=== PATIENT | female | born 1975 | race Caucasian/White ===

== ENCOUNTER 2016-11-15 18:14 | Emergency (ER) | payer OTHER ==
[2016-02-06 13:28] VITALS: BMI 32.2
[~2016-11-15 18:14] MED LIST: CATAPRES0.2 MG PO; HYDROCODONE-APA1 TAB PO; KLONOPIN1 MG PO; LEVAQUIN500 MG PO; SEROQUEL100 MG PO; SOMA350 MG PO; STERAPRED 5MG 125 MG PO; ZESTRIL40 MG PO
== END 2016-11-15 20:14 | disposition home or self-care (01) ==
LOC: D.ER 18:14
DX: K59.00 Constipation, unspecified (principal); I10 Essential (primary) hypertension; F41.0 Panic disorder [episodic paroxysmal anxiety]

== ENCOUNTER 2017-09-20 14:06 | Emergency (ER) | payer OTHER ==
[2016-02-06 13:28] VITALS: BMI 32.2
[2017-09-20 14:58] LABS: BASOPHILS 0.3 % (0-2); EOSINOPHILS 2.9 % (0-7); HEMATOCRIT 37.1 % (36.0-48.0); HEMOGLOBIN 12.6 g/dL (12-16); IMMATURE GRANULOCYTES 0.2 % (0-5); LYMPHOCYTES 34.2 % (15-50); MCH 31.5 pg (26.0-34.0); MCV 92.8 fL (80.0-100.0); MEAN PLATELET VOLUME 10.8 fL (7.4-10.4); MONOCYTES 6.7 % (2-11); NEUTROPHILS 55.7 % (40-80); PLATELET COUNT 220 10x3/uL (130-400); RDW 12.8 % (11.5-14.5); WBC 6.3 10x3/uL (4.8-10.8)
[2017-09-20 15:05] LABS: APPEARANCE CLEAR (CLEAR); BILIRUBIN NEGATIVE (NEGATIVE); COLOR YELLOW (YELLOW); GLUCOSE NEGATIVE (NEGATIVE); KETONE NEGATIVE (NEGATIVE); NITRITE NEGATIVE (NEGATIVE); PROTEIN NEGATIVE (NEGATIVE); SPECIFIC GRAVITY 1.015 (1.005-1.020); UROBILINOGEN NORMAL (NORMAL)
[2017-09-20 15:23] LABS: UDS - AMPHET NEGATIVE QUAL (NEGATIVE); UDS - BARB NEGATIVE QUAL (NEGATIVE); UDS - BENZO POSITIVE QUAL (NEGATIVE); UDS - COCAINE NEGATIVE QUAL (NEGATIVE); UDS - OPIATE NEGATIVE QUAL (NEGATIVE); UDS - PCP NEGATIVE QUAL (NEGATIVE); UDS - THC NEGATIVE QUAL (NEGATIVE)
[2017-09-20 15:58] LABS: ALBUMIN 3.7 g/dL (3.4-5.0); ALKALINE PHOSPHATASE 75 U/L (46-116); ALT (SGPT) 31 U/L (10-68); BILIRUBIN - TOTAL 0.25 mg/dL (0.2-1.3); CALC OSMOLALITY 272 mosm/kg (275-300); CALCIUM 9.3 mg/dL (8.5-10.1); CARBON DIOXIDE 31.4 mmol/L (21.0-32.0); CHLORIDE - SERUM 103 mmol/L (98-107); CREATININE - SERUM 0.7 mg/dL (0.6-1.3); GLUCOSE 85 mg/dL (74-106); PROTEIN - SERUM 7.5 g/dL (6.4-8.2); SODIUM 138 mmol/L (136-145); UREA NITROGEN 7 mg/dL (7-18); eGFR NON AFRICAN AMERICAN > 90 mL/min (90-120)
[2017-09-20 16:08] LABS: CHOL - HDL RATIO 4.7 ratio (2.3-4.1); CHOLESTEROL, TOTAL 232 mg/dL (0-200); CKMB 1.3 U/L (0.0-3.6); CREATINE KINASE 78 UL (21-215); HDL CHOLESTEROL 49 mg/dL (32-96); LDL CHOLESTEROL 155 mg/dL (0-100); LDL-HDL RATIO 3.2 ratio (1.5-3.5); PRO BNP 515 pg/mL (0-125); TRIGLYCERIDE 141 mg/dL (30-200)
[2017-09-20 16:11] LABS: TROPONIN-I < 0.017 ng/mL (0.000-0.060)
== END 2017-09-20 17:38 | disposition home or self-care (01) ==
LOC: D.ER 14:06
PROVIDERS: Emergency Medicine; Nurse Practitioner Family
DX: F41.9 Anxiety disorder, unspecified (principal); M25.571 Pain in right ankle and joints of right foot; R60.0 Localized edema; Z86.79 Personal history of other diseases of the circulatory system

== ENCOUNTER 2018-05-30 17:39 | Emergency (ER) | payer OTHER ==
[~2018-05-30] VITALS: Ht 167.6 cm; Wt 72.7 kg
[2018-05-30 17:41] VITALS: Ht 167.6 cm; Wt 72.7 kg
[2018-05-30 18:28] LABS: BASOPHILS 0.1 % (0-2); EOSINOPHILS 0.2 % (0-7); HEMATOCRIT 30.7 % (36.0-48.0); LYMPHOCYTES 4.2 % (15-50); MCH 31.9 pg (26.0-34.0); MCHC 35.8 g/dL (31.0-37.0); MEAN PLATELET VOLUME 11.8 fL (7.4-10.4); MONOCYTES 10.5 % (2-11); RBC 3.45 10x6/uL (4.00-5.40); RDW 12.8 % (11.5-14.5); WBC 15.3 10x3/uL (4.8-10.8)
[2018-05-30 18:30] LABS: PLATELET COUNT 165 10x3/uL (130-400)
[2018-05-30 18:52] LABS: ALBUMIN 2.8 g/dL (3.4-5.0); ANION GAP 11.5 mmol/L (8-16); BILIRUBIN - TOTAL 0.71 mg/dL (0.2-1.3); CALCIUM 8.9 mg/dL (8.5-10.1); CREATININE - SERUM 4.7 mg/dL (0.6-1.3); POTASSIUM - SERUM 3.5 mmol/L (3.5-5.1); PROTEIN - SERUM 7.7 g/dL (6.4-8.2)
[2018-05-30 22:01] LABS: APPEARANCE HAZY (CLEAR); BILIRUBIN NEGATIVE (NEGATIVE); COLOR YELLOW (YELLOW); GLUCOSE NEGATIVE (NEGATIVE); KETONE NEGATIVE (NEGATIVE); NITRITE NEGATIVE (NEGATIVE); PROTEIN 1+ mg/dL (NEGATIVE); SPECIFIC GRAVITY 1.005 (1.005-1.020); UROBILINOGEN NORMAL (NORMAL)
[2018-05-30 22:06] LABS: UDS - AMPHET NEGATIVE QUAL (NEGATIVE); UDS - BARB NEGATIVE QUAL (NEGATIVE); UDS - BENZO NEGATIVE QUAL (NEGATIVE); UDS - OPIATE NEGATIVE QUAL (NEGATIVE)
[2018-05-30 22:09] LABS: UDS - COCAINE NEGATIVE QUAL (NEGATIVE); UDS - PCP NEGATIVE QUAL (NEGATIVE); UDS - THC NEGATIVE QUAL (NEGATIVE)
[2018-05-30 22:15] LABS: BACTERIA MANY /hpf (NONE SEEN); EPITHELIAL CELLS 0-5 /hpf (0-5); RED CELLS - URINE 0-5 /hpf (0-5)
[2018-05-30] MEDS ORDERED: MACROBID100 MG PO (23:45)
[2018-05-31 01:23] VITALS: BP 89/52
== END 2018-05-31 01:25 | disposition other institution (70) ==
LOC: D.ER 17:39
PROVIDERS: Emergency Medicine
DX: F23 Brief psychotic disorder (principal); N39.0 Urinary tract infection, site not specified; I10 Essential (primary) hypertension; F17.200 Nicotine dependence, unspecified, uncomplicated

== ENCOUNTER 2018-08-21 20:10 | Emergency (ER) | payer SELFPAY ==
[~2018-08-21] VITALS: Ht 167.6 cm; Wt 72.7 kg
[~2018-08-21 20:10] MED LIST changes: +MACROBID100 MG PO
[2018-08-21 20:17] VITALS: Ht 167.6 cm; Wt 72.7 kg
[2018-08-21 20:26] LABS: APPEARANCE CLEAR (CLEAR); BILIRUBIN NEGATIVE (NEGATIVE); COLOR YELLOW (YELLOW); GLUCOSE NEGATIVE (NEGATIVE); KETONE NEGATIVE (NEGATIVE); NITRITE POSITIVE (NEGATIVE); PROTEIN 1+ mg/dL (NEGATIVE); SPECIFIC GRAVITY 1.015 (1.005-1.020); UROBILINOGEN NORMAL (NORMAL)
[2018-08-21 20:27] LABS: RED CELLS - URINE 0-5 /hpf (0-5); UDS - AMPHET POSITIVE QUAL (NEGATIVE); UDS - BARB NEGATIVE QUAL (NEGATIVE); UDS - BENZO NEGATIVE QUAL (NEGATIVE); UDS - COCAINE NEGATIVE QUAL (NEGATIVE); UDS - OPIATE NEGATIVE QUAL (NEGATIVE); UDS - PCP NEGATIVE QUAL (NEGATIVE); UDS - THC NEGATIVE QUAL (NEGATIVE)
[2018-08-21 20:28] LABS: BACTERIA MODERATE /hpf (NONE SEEN); EPITHELIAL CELLS 0-5 /hpf (0-5)
[2018-08-21] MEDS ORDERED: MACROBID100 MG PO (20:48)
[2018-08-21 20:59] VITALS: BP 129/87
== END 2018-08-21 21:01 | disposition home or self-care (01) ==
LOC: D.ER 20:10
PROVIDERS: Family Medicine
DX: F41.9 Anxiety disorder, unspecified (principal); F19.10 Other psychoactive substance abuse, uncomplicated; I10 Essential (primary) hypertension; F17.200 Nicotine dependence, unspecified, uncomplicated

== ENCOUNTER 2018-10-21 05:36 | Emergency (ER) | payer SELFPAY ==
[~2018-10-21] VITALS: Ht 167.6 cm; Wt 63.6 kg
[2018-10-21 05:44] VITALS: Ht 167.6 cm; Wt 63.6 kg
[2018-10-21] MEDS ORDERED: CLEOCIN HCL300 MG PO (06:12)
[2018-10-21] MEDS ORDERED: NORCO 7.5/325 T1 TA1 PO (06:12)
[2018-10-21 06:23] VITALS: BP 133/77
== END 2018-10-21 06:23 | disposition home or self-care (01) ==
LOC: D.ER 05:36
DX: S02.5XXA Fracture of tooth (traumatic), initial encounter for closed fracture (principal); X58.XXXA Exposure to other specified factors, initial encounter; Y93.89 Activity, other specified; Y92.89 Other specified places as the place of occurrence of the external cause; I10 Essential (primary) hypertension; F17.200 Nicotine dependence, unspecified, uncomplicated

== ENCOUNTER 2019-03-22 02:24 | Inpatient (IN) | payer SELFPAY ==
[~2019-03-22] VITALS: Ht 167.6 cm; Wt 59.0 kg
[2019-03-22] VITALS (19 sets, daily range): BP systolic 110–164; BP diastolic 53–111; Ht 167.6 cm; Wt 59.0 kg
[~2019-03-22 02:24] MED LIST changes: +CLEOCIN HCL300 MG PO; +NORCO 7.5/325 T1 TA1 PO
[2019-03-22 03:25] LABS: BASOPHILS 0.2 % (0-2); EOSINOPHILS 0.7 % (0-7); IMMATURE GRANULOCYTES 0.2 % (0-5); LYMPHOCYTES 15.7 % (15-50); MCH 31.1 pg (26.0-34.0); MCHC 34.3 g/dL (31.0-37.0); MCV 90.7 fL (80.0-100.0); MEAN PLATELET VOLUME 9.9 fL (7.4-10.4); MONOCYTES 8.8 % (2-11); NEUTROPHILS 74.4 % (40-80); PLATELET COUNT 237 10x3/uL (130-400); RBC 3.86 10x6/uL (4.00-5.40); RDW 15.1 % (11.5-14.5); WBC 11.5 10x3/uL (4.8-10.8)
[2019-03-22 03:39] LABS: ALBUMIN 3.5 g/dL (3.4-5.0); ANION GAP 12.4 mmol/L (8-16); BILIRUBIN - TOTAL 0.49 mg/dL (0.2-1.3); CALCIUM 8.7 mg/dL (8.5-10.1); CARBON DIOXIDE 27.2 mmol/L (21.0-32.0); CREATININE - SERUM 1.1 mg/dL (0.6-1.3); POTASSIUM - SERUM 3.6 mmol/L (3.5-5.1); PROTEIN - SERUM 7.1 g/dL (6.4-8.2)
[2019-03-22 05:32] LABS: APPEARANCE CLEAR (CLEAR); BILIRUBIN NEGATIVE (NEGATIVE); COLOR STRAW (YELLOW); GLUCOSE NEGATIVE (NEGATIVE); KETONE NEGATIVE (NEGATIVE); NITRITE NEGATIVE (NEGATIVE); PROTEIN NEGATIVE (NEGATIVE); SPECIFIC GRAVITY 1.005 (1.005-1.020); UROBILINOGEN NORMAL (NORMAL)
[2019-03-22 05:35] LABS: UDS - AMPHET POSITIVE QUAL (NEGATIVE); UDS - BARB NEGATIVE QUAL (NEGATIVE); UDS - BENZO NEGATIVE QUAL (NEGATIVE); UDS - COCAINE POSITIVE QUAL (NEGATIVE); UDS - OPIATE NEGATIVE QUAL (NEGATIVE); UDS - PCP NEGATIVE QUAL (NEGATIVE); UDS - THC NEGATIVE QUAL (NEGATIVE)
--- NOTE | 2019-03-22 05:40 | NUR ---
PT ARRIVED TO UNIT VIA STRETCHER ACCOMPANIED BY ER STAFF. TRANSFERRED SELF FROM STRETCHER WITHOUT DIFFICULTY. PT BELONGINGS IN ROOM WITH PATIENT. PT LETHARGIC. AROUSES AND ANSWERS SOME QUESTIONS WITH THE HELP OF TACTILE STIMULATION. 98% ON RA. RT SCLERA BRIGHT RED. PERRLA. UPPER LIP BRUISED WITH ABRASIANS. MULTIPLE BRUISES T/O BODY. RT FA PIV SALINE LOCKED. HOB 30 DEGRESS PER MD ORDER. BED ALARM ON. ALL OTHER SAFETY MEASURES IN PLACE. CBIR. WILL CONTINUE TO CLOSELY MONITOR.
--- NOTE | 2019-03-22 07:00 | NUR ---
SHIFT ASSESSMENT COMPLETED. PT CARE ASSUMED, MONITORS ON AND WORKING, VITALS STABLE, CALL LIGHT WITHIN REACH, WILL CONTINUE TO OBSERVE. SEE FLOW SHEET FOR FURTHER DETIALS. WILL CONTINUE TO OBSERVE.
[2019-03-22 07:57] LABS: APTT 26.8 SECONDS (22.8-39.4); INR 1.01 (0.85-1.17); PROTIME 12.8 SECONDS (11.6-15.0)
--- NOTE | 2019-03-22 09:00 | NUR ---
PT LYING IN BED RESTING, PT UP TO BEDSIDE COMMODE AT L[place], MONITORS ON AND WORKING, VITALS STABLE, NO SIGNS/SYMPTOMS OF PAIN OR DISCOMFORT NOTED AT THIS TIME, WILL CONTINUE TO OBSERVE.
--- NOTE | 2019-03-22 09:30 | NUR ---
PT REC'ING ATIVAN, PT DROWSY, VERY CONFUSED WHEN AROUSED, UNABLE TO HOLD MEANINGFUL CONVERSATION, WILL DO SUICIDE RISK SCREENING WHEN PT IS MORE COHERENT.
--- NOTE | 2019-03-22 11:00 | NUR ---
DR KHAN AT BEDSIDE, NO CHANGES, MONITORS ON AND WORKING, VITALS STABLE, SEE FLOW SHEET FOR FURTHER DETIALS, WILL CONTINUE TO OBSERVE.
--- NOTE | 2019-03-22 13:00 | NUR ---
PT RESTING CALMLY, NO CHANGES MONITORS ON AND WORKING. VITALS STABLE, WILL CONTINUE TO OBSERVE.
--- NOTE | 2019-03-22 15:00 | NUR ---
PT UP AD LENO. VITALS STABLE, SEE FLOW SHEET FOR FURTHER DETAILS. WILL CONTINUE TO OBSERVE.
--- NOTE | 2019-03-22 16:02 | MORECARE ---
CASE MANAGEMENT DISCHARGE SUMMARY PATIENT: RADHA MONROY UNIT: [id number] ADM DATE: 03/22/19 AGE: 44 : 71 SEX: F ROOM/BED: D.2301 AUTHOR: MARIJA GEORGES PHYSICIAN: REFERRING PHYSICIAN: LUCRECIA DOVE MD DATE OF SERVICE: 03/22/19 Discharge Plan Patient Name: RADHA MONROY Facility: [facility]:[place] : 1975 Planned Disposition: Anticipated Discharge Date: Discharge Date: Expected LOS: Initial Reviewer: [email or web address] Initial Review Date: 03/22/2019 Generated: 03/22/19 5:02 pm Patient Name: RADHA MONROY Page [id number] at 1602 All edits/amendments must be made on the electronic document DICTATION DATE: 03/22/19 160 CENTRIFUGE OPERATOR: JULIETTE 03/22/19 160 RPT#: [id number] PA DATE: STATUS: ADM IN [facility] [address] [place] [address] END OF REPORT
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
--- NOTE | 2019-03-22 17:00 | NUR ---
PT RESTING, NO SIGNS/SYMPTOMS OF PAIN OR DISCOMFORT NOTED. WILL CONTINUE TO OBSERVE.
--- NOTE | 2019-03-22 19:00 | NUR ---
SHIFT ASSESSMENT COMPLETE. VS STABLE. NO DISTRESS WILL CONTINUE TO MONITOR.
--- NOTE | 2019-03-22 21:00 | NUR ---
VS STABLE. NO VISUAL CUES OF DISTRESS NOTED. WILL MONITOR.
--- NOTE | 2019-03-22 23:00 | NUR ---
VS STABLE. NO VISUAL CUES OF DISTRESS NOTED. WILL MONITOR.
[2019-03-23] VITALS (13 sets, daily range): BP systolic 106–148; BP diastolic 67–93
--- NOTE | 2019-03-23 01:00 | NUR ---
VS STABLE. NO VISUAL CUES OF DISTRESS NOTED. WILL MONITOR.
--- NOTE | 2019-03-23 03:00 | NUR ---
VS STABLE. NO VISUAL CUES OF DISTRESS NOTED. WILL MONITOR.
[2019-03-23 04:31] LABS: BASOPHILS 0 % (0-2); EOSINOPHILS 0 % (0-7); HEMATOCRIT 39.8 % (36.0-48.0); HEMOGLOBIN 13.8 g/dL (12-16); IMMATURE GRANULOCYTES 0.2 % (0-5); LYMPHOCYTES 6.1 % (15-50); MCH 31.6 pg (26.0-34.0); MCHC 34.7 g/dL (31.0-37.0); MCV 91.1 fL (80.0-100.0); MEAN PLATELET VOLUME 10.6 fL (7.4-10.4); MONOCYTES 4.7 % (2-11); PLATELET COUNT 278 10x3/uL (130-400); RBC 4.37 10x6/uL (4.00-5.40); RDW 14.9 % (11.5-14.5)
[2019-03-23 04:49] LABS: ANION GAP 13.1 mmol/L (8-16); CARBON DIOXIDE 27.8 mmol/L (21.0-32.0); POTASSIUM - SERUM 3.9 mmol/L (3.5-5.1)
[2019-03-23 04:54] LABS: WBC 15.1 10x3/uL (4.8-10.8)
--- NOTE | 2019-03-23 05:00 | NUR ---
VS STABLE. NO VISUAL CUES OF DISTRESS NOTED. WILL MONITOR.
--- NOTE | 2019-03-23 07:21 | NUR ---
PT IS RESTING IN BED WITH EYES CLOSED. RESPIRATIONS ARE EVEN AND UNLABORED. PT IS EASILY AROUSED WITH VERBAL STIMULATION. VSS. SEE FLOWSHEET. PT REQUESTS TO BE REMOVED FROM CONFIDENTIAL STATUS. PT EDUCATED ON CONFIDENTIAL STATUS AND PT VERBALIZES UNDERSTANDING. PT REPORTS ANXIETY AT THIS TIME AND REQUESTS A SPRITE TO DRINK. WILL ADDRESS. BED IS IN THE LOWEST POSITION. CALL LIGHT AND BEDSIDE TABLE ARE WITHIN REACH. SIDE RAILS X 0 AT PT REQUEST. WILL CONT TO MONITOR.
--- NOTE | 2019-03-23 09:50 | NUR ---
PT IS AAO X 4. PT REPORTS AGGITATION IN REGARDS TO PAIN MEDICATION, NPO STATUS, AND CONFIDENTIALITY STATUS. OFFICER AT BEDSIDE TO TAKE PT STATEMENT. PT AGREES TO COMMUNICATE WITH OFFICER. MORNING MEDS COMPLETED. PT EDUCATED ON IMPORTANCE OF NPO STATUS. DR SHIRLEY AT BEDSIDE, WILL CHANGE ACETAMINOPHEN ROUTE TO PO FOR ANALGESIA. PT DENIES FURTHER NEEDS AT THIS TIME. WILL CONT TO MONITOR
--- NOTE | 2019-03-23 12:00 | NUR ---
PT REQUESTS TO LEAVE AMA. PT EDUCATED ON AMA AND IMPORTANCE OF APPROPRIATE MEDICAL CARE, PT STATES "I DON'T CARE. I WANT TO LEAVE." AMA PAPERS SIGNED BY PATIENT. DR DOVE NOTIFIED OF PT REQUEST TO LEAVE AMA. SIGNED AMA PAPERS PLACED IN PT CHART. PT REFUSING ANY FURTHER MEDICAL ATTENTION. PT STATES THAT SHE WILL GET DRESSED AND WILL HAVE SOMEONE COME AND PICK HER UP. WILL CONT TO ASSIST PATIENT UNTIL ABLE TO LEAVE UNIT.
--- NOTE | 2019-03-23 12:40 | NUR ---
PT EXITED ROOM AMBULATORY TO LEAVE AMA. PT WITH PERSONAL BELONGINGS IN HAND. PT DENIES/REFUSES FURTHER NEEDS/TREATMENT. PT ASSISTED OFF UNIT.
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
== END 2019-03-23 12:41 | disposition home or self-care (01) | DRG 86 ==
LOC: D.ER 02:24 → D.ICU 03:42
PROVIDERS: Family Medicine; ADMIT Internal Medicine Nephrology; ATTEND Internal Medicine Nephrology
DX: S06.5X0A Traumatic subdural hemorrhage without loss of consciousness, initial encounter (principal); N17.9 Acute kidney failure, unspecified; I50.32 Chronic diastolic (congestive) heart failure; F17.203 Nicotine dependence unspecified, with withdrawal; Y09 Assault by unspecified means; I11.0 Hypertensive heart disease with heart failure; F31.9 Bipolar disorder, unspecified; F15.10 Other stimulant abuse, uncomplicated; F14.10 Cocaine abuse, uncomplicated; F20.9 Schizophrenia, unspecified

== ENCOUNTER 2019-04-02 17:05 | Inpatient (IN) | payer MEDICAID ==
[~2019-04-02] VITALS: Ht 170.2 cm; Wt 65.6 kg
[2019-04-02] VITALS (8 sets, daily range): BP systolic 139–159; BP diastolic 63–98; BMI 20.4
[2019-04-02 17:43] LABS: BASOPHILS 0.3 % (0-2); EOSINOPHILS 0.7 % (0-7); HEMATOCRIT 34.6 % (36.0-48.0); HEMOGLOBIN 11.7 g/dL (12-16); IMMATURE GRANULOCYTES 0.3 % (0-5); LYMPHOCYTES 14.2 % (15-50); MCH 30.8 pg (26.0-34.0); MCHC 33.8 g/dL (31.0-37.0); MCV 91.1 fL (80.0-100.0); MONOCYTES 5.8 % (2-11); NEUTROPHILS 78.7 % (40-80); PLATELET COUNT 280 10x3/uL (130-400); RDW 14.1 % (11.5-14.5); WBC 10.6 10x3/uL (4.8-10.8)
[2019-04-02 17:56] LABS: APTT 25.5 SECONDS (22.8-39.4); INR 0.93 (0.85-1.17)
[2019-04-02 18:17] LABS: ALBUMIN 3.7 g/dL (3.4-5.0); ALKALINE PHOSPHATASE 69 U/L (46-116); ALT (SGPT) 39 U/L (10-68); BILIRUBIN - TOTAL 0.36 mg/dL (0.2-1.3); CALC OSMOLALITY 284 mosm/kg (275-300); CALCIUM 8.9 mg/dL (8.5-10.1); CARBON DIOXIDE 24.8 mmol/L (21.0-32.0); CHLORIDE - SERUM 103 mmol/L (98-107); GLUCOSE 77 mg/dL (74-106); POTASSIUM - SERUM 3.2 mmol/L (3.5-5.1); PROTEIN - SERUM 7.7 g/dL (6.4-8.2); SODIUM 139 mmol/L (136-145); UREA NITROGEN 36 mg/dL (7-18); eGFR NON AFRICAN AMERICAN 63 mL/min (90-120)
[2019-04-02 18:30] LABS: CKMB 4.8 U/L (0.0-3.6); CREATINE KINASE 205 UL (21-215); MAGNESIUM - SERUM 2.5 mg/dL (1.8-2.4); THYROID STIMULATING HORMONE 1.14 uIU/mL (0.36-3.74)
[2019-04-02 18:32] LABS: TROPONIN-I < 0.017 ng/mL (0.000-0.060)
[2019-04-02 19:19] LABS: % SATURATION 15 % (15-55); IRON 51 ug/dl (35-150); TOTAL IRON BIND CAPACITY 336 ug/dl (260-445); UNSAT IRON BIND CAPACITY 285 ug/dl (150-375)
--- NOTE | 2019-04-02 19:35 | NUR ---
PT PLACED IN GOWN. PT UPDATED ON PLAN OF CARE AND NPO STATUS. PT REFUSING BLOOD CULTURE LAB DRAW AT THIS TIME.
--- NOTE | 2019-04-02 19:44 | NUR ---
DR CRUZ AT PT BEDSIDE.
--- NOTE | 2019-04-02 20:30 | NUR ---
PT SLEEPING ON BED, NO S/S OF ACUTE DISTRESS NOTED.
--- NOTE | 2019-04-02 21:16 | NUR ---
PT AMBULATED TO RESTROOM WITH A STEADY GAIT. URINE SPECIMEN GIVEN TO LAB.
[2019-04-02 21:21] LABS: APPEARANCE CLEAR (CLEAR); BILIRUBIN NEGATIVE (NEGATIVE); COLOR STRAW (YELLOW); GLUCOSE NEGATIVE (NEGATIVE); KETONE MODERATE mg/dL (NEGATIVE); NITRITE NEGATIVE (NEGATIVE); PROTEIN NEGATIVE (NEGATIVE); SPECIFIC GRAVITY 1.015 (1.005-1.020); UROBILINOGEN NORMAL (NORMAL)
[2019-04-02 21:24] LABS: BACTERIA FEW /hpf (NONE SEEN); EPITHELIAL CELLS 0-5 /hpf (0-5); RED CELLS - URINE 0-5 /hpf (0-5); WHITE CELLS - URINE OCC /hpf (0-5)
[2019-04-02 21:40] LABS: UDS - AMPHET NEGATIVE QUAL (NEGATIVE); UDS - BARB NEGATIVE QUAL (NEGATIVE); UDS - BENZO NEGATIVE QUAL (NEGATIVE); UDS - COCAINE NEGATIVE QUAL (NEGATIVE); UDS - OPIATE POSITIVE QUAL (NEGATIVE); UDS - PCP NEGATIVE QUAL (NEGATIVE); UDS - THC NEGATIVE QUAL (NEGATIVE)
--- NOTE | 2019-04-02 22:00 | NUR ---
RECEIVED PT FROM ER TO ROOM 2301. PT MOVED SELF OVER TO ICU BED AND WAS ATTACHED TO MONITORS. ALL MONITORS ARE WORKING AT THIS TIME. ADMISSION ASSESSMENT COMPLETED, SEE FLOWSHEET FOR DETIALS. PT DENIES NEEDS AT THIS TIME. NO SIGNS OF ACUTE DISTRESS. WILL CONTINUE TO MONITOR.
--- NOTE | 2019-04-02 23:00 | NUR ---
PT IS RESTING QUIETLY IN BED AT THIS TIME. NO SIGNS OF ACUTE DISTRESS. NO NEEDS VOICED. WILL CONTINUE TO MONITOR.
[2019-04-03] VITALS (21 sets, daily range): BP systolic 96–152; BP diastolic 66–97; Ht 170.2 cm; Wt 65.6 kg
--- NOTE | 2019-04-03 01:00 | NUR ---
PT IS RESTING IN BED WITH EYES CLOSED AT THIS TIME. NO NEEDS VOICED. NO SIGNS OF ACUTE DISTRESS. WILL CONTINUE TO MONITOR.
--- NOTE | 2019-04-03 03:00 | NUR ---
REASSESSMENT COMPLETED, SEE FLOWSHEET FOR DETAILS. PT IS LAYING IN BED WITH EYES CLOSED. NO NEEDS VOICED AT THIS TIME. NO SIGNS OF ACUTE DISTRESS. WILL CONTINUE TO MONITOR.
[2019-04-03 03:47] LABS: BASOPHILS 0 % (0-2); EOSINOPHILS 0 % (0-7); HEMATOCRIT 32.9 % (36.0-48.0); HEMOGLOBIN 11.2 g/dL (12-16); IMMATURE GRANULOCYTES 0.2 % (0-5); LYMPHOCYTES 5.8 % (15-50); MCH 31.1 pg (26.0-34.0); MCV 91.4 fL (80.0-100.0); MEAN PLATELET VOLUME 10.4 fL (7.4-10.4); MONOCYTES 0.2 % (2-11); NEUTROPHILS 93.8 % (40-80); PLATELET COUNT 288 10x3/uL (130-400); WBC 9.3 10x3/uL (4.8-10.8)
[2019-04-03 04:07] LABS: ALBUMIN 3.1 g/dL (3.4-5.0); ANION GAP 12.9 mmol/L (8-16); BILIRUBIN - TOTAL 0.5 mg/dL (0.2-1.3); CALCIUM 8.7 mg/dL (8.5-10.1); CREATININE - SERUM 0.9 mg/dL (0.6-1.3); MAGNESIUM - SERUM 2.3 mg/dL (1.8-2.4); PROTEIN - SERUM 6.8 g/dL (6.4-8.2)
[2019-04-03 04:29] LABS: POTASSIUM - SERUM 3.9 mmol/L (3.5-5.1)
--- NOTE | 2019-04-03 05:00 | NUR ---
PT IS RESTING IN BED WITH EYES CLOSED. NO NEEDS VOICED. NO SIGNS OF ACUTE DISTRESS. WILL CONTINUE TO MONITOR.
--- NOTE | 2019-04-03 07:00 | NUR ---
SHIFT ASSESSMENT COMPLETED. PT CARE ASSUMED, MONITORS ON AND WORKING, VITALS STABLE, PT AWAKENS EASILY TO VOICE. CALL LIGHT WITHIN REACH, WILL CONTINUE TO OBSERVE.
--- NOTE | 2019-04-03 09:00 | NUR ---
PATIENT RESTING. FAMILY AT BEDSIDE. VSS. WILL CONTINUE TO MONITOR
--- NOTE | 2019-04-03 11:00 | NUR ---
PATIENT RESTING. AFEBRILE. ALERT AND ORIENTED. CALL LIGHT WITHIN REACH. VSS. WILL CONTINUE TO MONITOR
--- NOTE | 2019-04-03 13:00 | NUR ---
FAMILY AT BEDSIDE. CALL LIGHT WITHIN REACH. BED LOW AND LOCKED. PATIENT ALERT AND ORIENTED. NO CHAGNES NOTED
--- NOTE | 2019-04-03 15:00 | NUR ---
PATIENT RESTING. PATIENT COMPLAINING OF ANXIETY. GIVEN ATIVAN. WILL REASSES. REASSESMENT COMPLETED. WILL CONTINUE TO MONITOR
--- NOTE | 2019-04-03 17:00 | NUR ---
FAMILY AT BEDSIDE. PATIENT REPORTED HIP PAIN. DILUADED GIVEN. WILL REASSES. CALL LIGHT WITHIN REACH
--- NOTE | 2019-04-03 19:00 | NUR ---
REPORT RECEIVED, CARE ASSUMED. PT IS SITTING IN BED WITH EYES OPEN. PT'S IV IS OUT AT THIS TIME. WILL RESITE. INITIAL ASSESSMENT COMPLETED, SEE FLOWSHEET FOR DETAILS. NO NEEDS VOICED AT THIS TIME. NO SIGNS OF ACUTE DISTRESS. WILL CONTINUE TO MONITOR.
--- NOTE | 2019-04-03 21:00 | NUR ---
PT IS SITTING UP IN BED WITH EYES OPEN AT THIS TIME. IV RESITED TO RIGHT FOREARM. PT REQUESTED PRN PAIN AND ANXIETY MEDICATIONS, MEDS GIVEN, SEE EMAR FOR DETAILS. NO FURTHER NEEDS VOICED AT THIS TIME. NO SIGNS OF ACUTE DISTRESS. WILL CONTINUE TO MONITOR.
--- NOTE | 2019-04-03 23:00 | NUR ---
REASSESSMENT COMPLETED, SEE FLOWSHEET FOR DETAILS. PT IS IN BED WITH EYES CLOSED AT THIS TIME. NO NEEDS VOICED. NO SIGNS OF ACUTE DISTRESS. WILL CONTINUE TO MONITOR.
[2019-04-04] VITALS (19 sets, daily range): BP systolic 113–149; BP diastolic 51–95
--- NOTE | 2019-04-04 01:00 | NUR ---
PT IS RESTING IN BED WITH EYES CLOSED AT THIS TIMENO NEEDS VOICED. NO SIGNS OF ACUTE DISTRESS. WILL CONTINUE TO MONITOR.
--- NOTE | 2019-04-04 03:00 | NUR ---
REASSESSMENT COMPLETED, SEE FLOWSHEET FOR DETAILS. PT IS RESTING IN BED WITH EYES CLOSED. NO NEEDS VOICED AT THIS TIME. NO SIGNS OF ACUTE DISTRESS. WILL CONTINUE TO MONITOR.
[2019-04-04 04:52] LABS: ALBUMIN 2.8 g/dL (3.4-5.0); ANION GAP 9.8 mmol/L (8-16); CALCIUM 8.4 mg/dL (8.5-10.1); CREATININE - SERUM 1.1 mg/dL (0.6-1.3); MAGNESIUM - SERUM 2.1 mg/dL (1.8-2.4); POTASSIUM - SERUM 3.8 mmol/L (3.5-5.1); PROTEIN - SERUM 5.7 g/dL (6.4-8.2)
[2019-04-04 04:54] LABS: BILIRUBIN - TOTAL 0.1 mg/dL (0.2-1.3)
--- NOTE | 2019-04-04 05:00 | NUR ---
PT IS RESTING IN BED WITH EYES CLOSED AT THIS TIME. NO NEEDS VOICED. NO SIGNS OF ACUTE DISTRESS. WILL CONTINUE TO MONITOR.
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
--- NOTE | 2019-04-04 07:10 | NUR ---
RECIEVED REPORT FROM KULDEEP. PATIENT STATED FIANCE WILL BE BACK TO VISIT TODAY. VSS. WILL CONTINUE TO MONITOR. CALL LIGHT WITHIN REACH. BED LOW AND LOCKED. ASSESMENT COMPLETED
[2019-04-04 07:46] LABS: HEMATOCRIT 25.8 % (36.0-48.0); HEMOGLOBIN 8.7 g/dL (12-16); MCH 30.3 pg (26.0-34.0); MCHC 33.7 g/dL (31.0-37.0); MCV 89.9 fL (80.0-100.0); MEAN PLATELET VOLUME 10.5 fL (7.4-10.4); PLATELET COUNT 269 10x3/uL (130-400); RBC 2.87 10x6/uL (4.00-5.40); RDW 14.6 % (11.5-14.5)
--- NOTE | 2019-04-04 08:32 | NUR ---
GLASS REMOVED FROM ROOM. PATIENT IS CALM AND COOPERATIVE AT THIS TIME. PATIENT REQUESTS TO BE AWAKE WHEN PAIN MEDICATION BE ADMINISTERED. TWO RN'S WILL BE IN THE ROOM WHEN NARCOTICS ARE ADMINISTERED.
[2019-04-04 09:27] LABS: IMMATURE GRANULOCYTES 0.3 % (0-5)
[2019-04-04 09:40] LABS: HYPOCHROMASIA OCC; LYMPHOCYTES 7 % (15-50); MONOCYTES 1 % (2-11); NEUTROPHILS 89 % (40-80); PLATELET ESTIMATE NORMAL
--- NOTE | 2019-04-04 09:42 | NUR ---
DR KHAN NOTIFIED OF LOW H&H NEW ORDERS RECIEVED
--- NOTE | 2019-04-04 11:00 | NUR ---
PATIENT RESTING. CALM AND COOPERATIVE. VSS. WILL CONTINUE TO MONITOR
--- NOTE | 2019-04-04 12:45 | NUR ---
STOOL SAMPLE COLLECTED
[2019-04-04 14:44] LABS: HEMATOCRIT 24.9 % (36.0-48.0); HEMOGLOBIN 8.3 g/dL (12-16)
--- NOTE | 2019-04-04 14:58 | MORECARE ---
CASE MANAGEMENT DISCHARGE SUMMARY PATIENT: RADHA MONROY R UNIT: [id number] ADM DATE: 04/02/19 AGE: 44 : 71 SEX: F ROOM/BED: D.2301 AUTHOR: MARIJA GEORGES PHYSICIAN: REFERRING PHYSICIAN: IDA CRUZ DO DATE OF SERVICE: 04/04/19 Discharge Plan Patient Name: RADHA MONROY [facility] [facility] 1975 Planned Disposition: Home Anticipated Discharge Date: Discharge Date: Expected LOS: Initial Reviewer: [email or web address] Initial Review Date: 04/04/2019 Generated: 04/04/19 3:57 pm DCPIA - Discharge Planning Initial Assessment Updated by [id number]: Janelle Lange on 04/04/19 2:50 pm * Is the patient Alert and Oriented? Yes * How many steps to enter\exit or inside your home? 20 * PCP NO PCP * Pharmacy [facility] * Preadmission Environment Home Alone * ADLs Independent * Equipment None * List name and contact numbers for known caregivers / representatives who currently or will assist patient after discharge: ASHLIECARLOS ORTEGA [facility]- [phone] * Verbal permission to speak to the caregivers and representatives has been obtained from the patient. Yes * Community resources currently utilized None * Additional services required to return to the preadmission environment? No * Can the patient safely return to the preadmission environment? Yes * Has this patient been hospitalized within the prior 30 days at any hospital? No Patient Name: RADHA MONROY Page [id number] at 1458 All edits/amendments must be made on the electronic document DICTATION DATE: 04/04/19 1457 CHAR HOUSE SUPERVISOR: JULIETTE 04/04/19 1457 RPT#: [id number] DC DATE: STATUS: ADM IN [facility] [address] [place] [address] END OF REPORT
--- NOTE | 2019-04-04 15:00 | NUR ---
PER DR DOVE ORDER- LIMITATION ON VISITORS AT THIS TIME
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
--- NOTE | 2019-04-04 16:12 | NUR ---
PATIENT BATHED HERSELF AT THIS TIME
--- NOTE | 2019-04-04 17:00 | NUR ---
patient reported nausea after eating. patient is resting. calm. will continue to monitor
--- NOTE | 2019-04-04 19:00 | NUR ---
PT IN BED IN LOW FOWLERS POSITION. VS STABLE. RESPIRATIONS EVEN AND UNLABORED. SHIFT ASSESSMENT COMPLETE. NO VISUAL CUES OF DISTRESS NOTED. WILL MONITOR.
[2019-04-04 20:15] LABS: HEMOGLOBIN 9.2 g/dL (12-16)
--- NOTE | 2019-04-04 21:00 | NUR ---
VS STABLE. NO VISUAL CUES OF DISTRESS NOTED. WILL CONITOR.
--- NOTE | 2019-04-04 23:00 | NUR ---
NO VISUAL CUES OF DISTRESS NOTED. VS STABLE AND AFEBRILE. WILL CONTINUE TO MONITOR.
[2019-04-05] VITALS (16 sets, daily range): BP systolic 109–151; BP diastolic 63–96
--- NOTE | 2019-04-05 | NUR ---
NO VISUAL CUES OF DISTRESS NOTED. VS STABLE AND AFEBRILE. WILL CONTINUE TO MONITOR.
--- NOTE | 2019-04-05 01:00 | NUR ---
NO VISUAL CUES OF DISTRESS NOTED. VS STABLE AND AFEBRILE. WILL CONTINUE TO MONITOR.
--- NOTE | 2019-04-05 03:00 | NUR ---
NO VISUAL CUES OF DISTRESS NOTED. VS STABLE AND AFEBRILE. WILL CONTINUE TO MONITOR.
[2019-04-05 04:59] LABS: BASOPHILS 0 % (0-2); EOSINOPHILS 0 % (0-7); HEMATOCRIT 26.6 % (36.0-48.0); HEMOGLOBIN 8.7 g/dL (12-16); IMMATURE GRANULOCYTES 0.4 % (0-5); MCH 30.6 pg (26.0-34.0); MCHC 32.7 g/dL (31.0-37.0); MCV 93.7 fL (80.0-100.0); MEAN PLATELET VOLUME 11.4 fL (7.4-10.4); MONOCYTES 4.7 % (2-11); NEUTROPHILS 89.9 % (40-80); PLATELET COUNT 227 10x3/uL (130-400); RBC 2.84 10x6/uL (4.00-5.40)
--- NOTE | 2019-04-05 05:00 | NUR ---
NO VISUAL CUES OF DISTRESS NOTED. VS STABLE AND AFEBRILE. WILL CONTINUE TO MONITOR.
[2019-04-05 05:15] LABS: ALBUMIN 2.5 g/dL (3.4-5.0); ANION GAP 8.5 mmol/L (8-16); BILIRUBIN - TOTAL 0.1 mg/dL (0.2-1.3); CALCIUM 8.3 mg/dL (8.5-10.1); CARBON DIOXIDE 23.5 mmol/L (21.0-32.0); CREATININE - SERUM 0.9 mg/dL (0.6-1.3); MAGNESIUM - SERUM 2.1 mg/dL (1.8-2.4); PROTEIN - SERUM 5.6 g/dL (6.4-8.2)
--- NOTE | 2019-04-05 07:08 | NUR ---
PATIENT BATHING HERSELF AT THIS TIME. REPORTE RECIEVED FROM GWENDOLYN. ONLY CHANGE NOTED WAS H&H HAVE DECREASED. ASSESMENT COMPLETED AT THIS TIME. VSS. WILL CONTINUE TO MONITOR.
--- NOTE | 2019-04-05 09:00 | NUR ---
PATIENT RESTING. VSS. WILL CONTINUE TO MONITOR.
--- NOTE | 2019-04-05 11:00 | NUR ---
PATIENT IS AFEBRILE. 98.9 IS THE LAST TEMP. PATIENT STABLE. CALM AND COOPERATIVE. VSS. WILL CONTINUE TO MONITOR
--- NOTE | 2019-04-05 11:38 | NUR ---
Nutrition follow-up: NPO for [place] hole today PO intake of regular diet has been 100% Wt: 145# +BM RDN following.
[2019-04-05 11:54] LABS: HEMATOCRIT 24.9 % (36.0-48.0); HEMOGLOBIN 8.3 g/dL (12-16)
--- NOTE | 2019-04-05 14:23 | NUR ---
FAMILY CAME TO VISIT. STARTED ARGUING AND YELLING. FAMILY WAS DISMISSED. PATIENT STATED LEONEL CERDA IS NOT TO COME VISIT HER. LEONEL CERDA IS THE MOTHER OF THE PATIENT.
--- NOTE | 2019-04-05 16:38 | NUR ---
PT BACK FROM SURGERY REPORT RECIEVED FROM MARIN
--- NOTE | 2019-04-05 17:00 | NUR ---
PATIENT RESTING. PATIENT IS ORIENTED TO SELF AND PLACE. VSS. WILL CONTINUE TO MONITOR
[2019-04-05 19:57] LABS: HEMATOCRIT 28.1 % (36.0-48.0); HEMOGLOBIN 9.3 g/dL (12-16)
[2019-04-06] VITALS (18 sets, daily range): BP systolic 129–177; BP diastolic 57–113
[2019-04-06 05:39] LABS: BASOPHILS 0 % (0-2); EOSINOPHILS 0 % (0-7); HEMATOCRIT 27.3 % (36.0-48.0); HEMOGLOBIN 8.9 g/dL (12-16); IMMATURE GRANULOCYTES 0.3 % (0-5); LYMPHOCYTES 12.9 % (15-50); MCH 30.8 pg (26.0-34.0); MCHC 32.6 g/dL (31.0-37.0); MCV 94.5 fL (80.0-100.0); MEAN PLATELET VOLUME 10.6 fL (7.4-10.4); MONOCYTES 6.5 % (2-11); NEUTROPHILS 80.3 % (40-80); PLATELET COUNT 258 10x3/uL (130-400); RBC 2.89 10x6/uL (4.00-5.40); WBC 15.8 10x3/uL (4.8-10.8)
[2019-04-06 05:57] LABS: ALBUMIN 2.4 g/dL (3.4-5.0); ANION GAP 10.9 mmol/L (8-16); BILIRUBIN - TOTAL 0.11 mg/dL (0.2-1.3); CALCIUM 8.3 mg/dL (8.5-10.1); CARBON DIOXIDE 23.6 mmol/L (21.0-32.0); CREATININE - SERUM 0.9 mg/dL (0.6-1.3); MAGNESIUM - SERUM 2.1 mg/dL (1.8-2.4); POTASSIUM - SERUM 4.5 mmol/L (3.5-5.1); PROTEIN - SERUM 5.5 g/dL (6.4-8.2)
--- NOTE | 2019-04-06 14:45 | NUR ---
0700 IN BED YELLING AND SCREAMING SPOKE WITH PATIENT WIN ALLOWED HER TO SHARE CONCERNS ASSESSMENT COMPLETE
--- NOTE | 2019-04-06 14:47 | NUR ---
0900 PATIENT QUIET AND COOPERATIVE REMAINS IN BED RESTING QUIETLY
--- NOTE | 2019-04-06 14:48 | NUR ---
1100 UP TO BEDISDE COMMODE. RETURNS TO BED WITHOUT COMPLICATIIONS PROTOIX AND NS BOTH INFUSING TO LEFT FOREARM SITE ORDERED
--- NOTE | 2019-04-06 14:49 | NUR ---
1300 SITTNG UP IN BED EATING LUNCH VISITOR SITTING IN CHAIR AT DOORWAY INSTRUCTED NOT TO BRING ANF FOOD OR OTHER ITEMS TO HOSP FOR PATIENT FRIENT VERBALIZED UNDERSTANDING CLOSE OBSERVATION OF PATIENT AND VISITOR INTERACTION
--- NOTE | 2019-04-06 19:00 | NUR ---
RECIEVED REPORT FROM TRAVIS LOGAN. PT RESTING IN BED WITH EYES OPEN ALERT AND ORIENTED X4 AT THIS TIME. PT REQUESTING PRN PAIN MEDICATION FOR 8/10 PAIN IN HEAD. MEDICATION HAD ON DEC IN PHARMACY. MEDICATION RESTARTED. BED LOW,SIDE RAILS UP X2, CALL LIGHT WITHIN REACH. WILL CONTINUE TO MONITOR.
--- NOTE | 2019-04-06 19:56 | NUR ---
1500 IN BED NO DISTRESS NOTED
--- NOTE | 2019-04-06 21:00 | NUR ---
PT'S LFA AND RAC IV INFILTRATED. DC'D BOTH WITH CATHETER TIP IN PLACE. NO SWELLING OR REDNESS PRESENT. RESTARTED IV IN MID LFA. IV PATENT. RESTARTED NS AND PROTONIX. SEE FLOWSHEET. LINEN CHANGE DONE. PT GIVEN BED BATH. SISTER AT BEDSIDE. NO S/S OF DISTRESS AT THIS TIME. BED LOW CALL LIGHT WITHIN REACH SIDE RAILS UP X2, PT EDUCATED ON CALLING NURSE FOR ASSISTANCE TO BEDSIDE COMMODE. WILL CONTINUE TO MONITOR.
--- NOTE | 2019-04-06 23:00 | NUR ---
PT USING BEDSIDE COMMODE. PT REQUESTED PAIN PRN PAIN MED. NOT DUE YET. BROUGHT PT DIET SPRITE AND JELLO. VITALS STABLE NO S/S OF DISTRESS. BED LOW CALL LIGHT WITHIN REACH. WILL CONTINUE TO MONITOR.
[2019-04-07] VITALS (12 sets, daily range): BP systolic 145–176; BP diastolic 86–143
--- NOTE | 2019-04-07 00:30 | NUR ---
I HAVE REVIEWED THIS PATIENT AND AGREE WITH SHIFT ASSESSMENT OF THE LICENSED PRACTICAL NURSE THIS SHIFT.
--- NOTE | 2019-04-07 00:45 | NUR ---
PT COMPLAINS OF PAIN 8/10 IN HEAD AND NAUSEA. PRN PAIN MEDICATION GIVEN. NO S/S OF DISTRESS AT THIS TIME. BED LOW, SIDE RAILS UP X2, CALL LIGHT WITHIN REACH. WILL CONTINUE TO MONITOR.
--- NOTE | 2019-04-07 01:36 | NUR ---
PT RESTING IN BED WITH EYES CLOSED. RR EVEN AND UNLABORED. NO S/S OF DISTRESS AT THIS TIME. BED LOW CALL LIGHT WITHIN REACH, SIDE RAILS UP X2. WILL CONTINUE TO MONITOR.
--- NOTE | 2019-04-07 03:36 | NUR ---
PT AGGITATED B/C LAB WOKE HER UP AND IT'S NOT TIME FOR PAIN MEDICATION. HEAD AT 30 DEGREES, BED LOW, CALL LIGHT WITHIN REACH, SIDE RAILS UP X2. WILL CONTINUE TO MONITOR.
[2019-04-07 03:49] LABS: BASOPHILS 0 % (0-2); EOSINOPHILS 0.1 % (0-7); HEMATOCRIT 26.7 % (36.0-48.0); HEMOGLOBIN 8.8 g/dL (12-16); IMMATURE GRANULOCYTES 0.7 % (0-5); LYMPHOCYTES 6.1 % (15-50); MCH 30.6 pg (26.0-34.0); MCV 92.7 fL (80.0-100.0); MEAN PLATELET VOLUME 10.6 fL (7.4-10.4); MONOCYTES 4.3 % (2-11); NEUTROPHILS 88.8 % (40-80); PLATELET COUNT 273 10x3/uL (130-400); RBC 2.88 10x6/uL (4.00-5.40); RDW 14.7 % (11.5-14.5)
[2019-04-07 03:52] LABS: WBC 8.8 10x3/uL (4.8-10.8)
[2019-04-07 04:05] LABS: ALBUMIN 2.3 g/dL (3.4-5.0); BILIRUBIN - TOTAL 0.13 mg/dL (0.2-1.3); CALCIUM 7.8 mg/dL (8.5-10.1); CARBON DIOXIDE 23.6 mmol/L (21.0-32.0); PROTEIN - SERUM 5.3 g/dL (6.4-8.2)
[2019-04-07 04:16] LABS: ANION GAP 13.1 mmol/L (8-16); POTASSIUM - SERUM 3.7 mmol/L (3.5-5.1)
--- NOTE | 2019-04-07 04:49 | NUR ---
PT COMPLAINS OF PAIN 8/10 IN HEAD. PRN PAIN MEDICATION GIVEN. VITALS STABLE. BED LOW CALL LIGHT WITHIN REACH. WILL CONTINUE TO MONITOR.
--- NOTE | 2019-04-07 06:05 | NUR ---
PT RESTING WITH EYES CLOSED RR EVEN AND UNLABORED. VITALS STABLE. BED LOW CALL LIGHT WITHIN REACH. WILL CONTINUE TO MONITOR.
--- NOTE | 2019-04-07 07:48 | NUR ---
Nutrition follow-up: s/p bur hole Diet: Regular PO intake has decrease post-surgery due to some nausea and increased pain medication wt: 145# Labs reviewed RDN following
--- NOTE | 2019-04-07 08:38 | NUR ---
BREAKFAST TRAY SERVED AND PT FEEDS SELF WITH OUT PROBLEMS.
--- NOTE | 2019-04-07 09:52 | NUR ---
PT ASKING FOR HER PAIN MEDS AND ATIVAN. MEDS GIVEN REQUESTED. PT VERB ADEQUATE R/O PAIN AND ANXIETY.
[2019-04-07] MEDS ORDERED: MEDROL DOSE PACK4 MG PO (11:39)
[2019-04-07] MEDS ORDERED: PROTONIX40 MG PO (11:40)
--- NOTE | 2019-04-07 14:22 | MORECARE ---
CASE MANAGEMENT DISCHARGE SUMMARY PATIENT: RADHA MONROY UNIT: [id number] ADM DATE: 04/02/19 AGE: 44 : 71 SEX: F ROOM/BED: D.2301 AUTHOR: MARIJA GEORGES PHYSICIAN: REFERRING PHYSICIAN: DIA CRUZ DO DATE OF SERVICE: 04/07/19 Discharge Plan Patient Name: RADHA MONROY Facility: [facility]:[place] : 1975 Planned Disposition: Home Anticipated Discharge Date: Discharge Date: 04/07/2019 Expected LOS: Initial Reviewer: [email or web address] Initial Review Date: 04/04/2019 Generated: 04/07/19 3:22 pm DCP- Discharge Planning Updated by [email or web address]: Janelle Lange on 04/04/19 2:[address] Patient Name: RADHA MONROY Admission Status: ER Accout number: [id number] Admission Date: 04-02-2019 : 1975 Admission Diagnosis:TRAUM SUBDR HEM W LOC OF UNSP DURATION, INIT Attending: DIA CRUZ Current LOS: 2 Anticipated DC Date: Planned Disposition: Home Primary Insurance: UNINSURED DISCOUNT PLAN Discharge Planning Comments: CM met with patient at bedside after explaining CM role and obtaining verbal consent. Patient states that she lives with family either with her mother or fianc?. Patient states that the address listed on face sheet is her mother's and her mailing address. ([address] [place] [address], [place] [address]) Patient states she works in [employer] and hopes to get a place up there soon. Patient denies any use / need for medical equipment or home health services. Patient plans to go home with family upon discharge. Patient denies any discharge needs. CM will continue to follow and assist as needed with discharge planning / needs. [employer] Consultant: Janelle Lange DCPIA - Discharge Planning Initial Assessment Updated by [email or web address]: Janelle Lange on 04/04/19 2:50 pm * Is the patient Alert and Oriented? Yes * How many steps to enter\exit or inside your home? 20 * PCP NO PCP * Pharmacy [facility] * Preadmission Environment Home Alone * ADLs Independent * Equipment None * List name and contact numbers for known caregivers / representatives who currently or will assist patient after discharge: ASHLIE ORTEGA JAMES- [phone] * Verbal permission to speak to the caregivers and representatives has been obtained from the patient. Yes * Community resources currently utilized None * Additional services required to return to the preadmission environment? No * Can the patient safely return to the preadmission environment? Yes * Has this patient been hospitalized within the prior 30 days at any hospital? No Last DP export: 04/04/19 2:19 pm Patient Name: RADHA MONROY Page [id number] at 1422 All edits/amendments must be made on the electronic document DICTATION DATE: 04/07/191420 [employer]: JULIETTE 04/07/191420 RPT#: [id number] DC DATE:04/07/19 STATUS: DIS IN [facility] [address] [place] [address] END OF REPORT
== END 2019-04-07 14:21 | disposition home or self-care (01) | DRG 26 ==
LOC: D.ER 17:05 → D.ICU 18:45
PROVIDERS: Family Medicine; Internal Medicine Nephrology; Neurological Surgery; ADMIT Family Medicine; ATTEND Family Medicine
PROC: 00940ZZ Drainage of Intracranial Subdural Space, Open Approach (ICD-10-PCS; principal; 2019-04-05 12:00)
DX: S06.5X9A Traumatic subdural hemorrhage with loss of consciousness of unspecified duration, initial encounter (principal); F17.203 Nicotine dependence unspecified, with withdrawal; I50.22 Chronic systolic (congestive) heart failure; K92.1 Melena; D64.9 Anemia, unspecified; E87.6 Hypokalemia; F19.10 Other psychoactive substance abuse, uncomplicated; F20.9 Schizophrenia, unspecified; F31.9 Bipolar disorder, unspecified; I11.0 Hypertensive heart disease with heart failure

== ENCOUNTER 2019-06-05 01:02 | Emergency (ER) | payer MEDICAID ==
[~2019-06-05] VITALS: Ht 170.2 cm; Wt 59.1 kg
[~2019-06-05 01:02] MED LIST changes: +MEDROL DOSE PACK4 MG PO; +PROTONIX40 MG PO
[2019-06-05 01:04] VITALS: Ht 170.2 cm; Wt 59.1 kg
[2019-06-05] MEDS ORDERED: NORVASC10 MG PO (01:07)
[2019-06-05] MEDS ORDERED: LISINOPRIL40 MG PO (01:07)
[2019-06-05] MEDS ORDERED: HCTZ (01:08)
[2019-06-05] MEDS ORDERED: CATAPRES0.1 MG PO (01:08)
[2019-06-05 01:32] LABS: BASOPHILS 0.2 % (0-2); EOSINOPHILS 2.7 % (0-7); HEMATOCRIT 33.2 % (36.0-48.0); HEMOGLOBIN 11.3 g/dL (12-16); IMMATURE GRANULOCYTES 0.1 % (0-5); LYMPHOCYTES 32.5 % (15-50); MCH 27.7 pg (26.0-34.0); MCV 81.4 fL (80.0-100.0); MEAN PLATELET VOLUME 10.2 fL (7.4-10.4); MONOCYTES 9.6 % (2-11); NEUTROPHILS 54.9 % (40-80); PLATELET COUNT 284 10x3/uL (130-400); RBC 4.08 10x6/uL (4.00-5.40); RDW 14.5 % (11.5-14.5); WBC 8.1 10x3/uL (4.8-10.8)
[2019-06-05 01:45] LABS: ALBUMIN 3.7 g/dL (3.4-5.0); ALKALINE PHOSPHATASE 68 U/L (46-116); ALT (SGPT) 79 U/L (10-68); BILIRUBIN - TOTAL 0.15 mg/dL (0.2-1.3); CALC OSMOLALITY 288 mosm/kg (275-300); CALCIUM 8.6 mg/dL (8.5-10.1); CARBON DIOXIDE 22.9 mmol/L (21.0-32.0); CHLORIDE - SERUM 101 mmol/L (98-107); CREATININE - SERUM 1.3 mg/dL (0.6-1.3); GLUCOSE 109 mg/dL (74-106); PROTEIN - SERUM 7.5 g/dL (6.4-8.2); SODIUM 139 mmol/L (136-145); UREA NITROGEN 40 mg/dL (7-18); eGFR NON AFRICAN AMERICAN 47 mL/min (90-120)
[2019-06-05 01:54] LABS: CREATINE KINASE 261 UL (21-215)
[2019-06-05 01:55] LABS: TROPONIN-I < 0.017 ng/mL (0.000-0.060)
[2019-06-05 01:56] LABS: APPEARANCE CLEAR (CLEAR); BILIRUBIN NEGATIVE (NEGATIVE); COLOR YELLOW (YELLOW); GLUCOSE NEGATIVE (NEGATIVE); KETONE NEGATIVE (NEGATIVE); NITRITE NEGATIVE (NEGATIVE); PROTEIN 1+ mg/dL (NEGATIVE); SPECIFIC GRAVITY 1.015 (1.005-1.020); UROBILINOGEN NORMAL (NORMAL)
[2019-06-05 01:57] LABS: UDS - AMPHET POSITIVE QUAL (NEGATIVE); UDS - BARB NEGATIVE QUAL (NEGATIVE); UDS - BENZO NEGATIVE QUAL (NEGATIVE); UDS - COCAINE POSITIVE QUAL (NEGATIVE); UDS - OPIATE POSITIVE QUAL (NEGATIVE); UDS - PCP NEGATIVE QUAL (NEGATIVE); UDS - THC NEGATIVE QUAL (NEGATIVE)
[2019-06-05 01:58] LABS: BACTERIA FEW /hpf (NONE SEEN); EPITHELIAL CELLS 0-5 /hpf (0-5); RED CELLS - URINE 0-5 /hpf (0-5); WHITE CELLS - URINE NSEEN /hpf (0-5)
[2019-06-05 02:43] VITALS: BP 136/77
== END 2019-06-05 02:48 | disposition home or self-care (01) ==
LOC: D.ER 01:02
PROVIDERS: Emergency Medicine
DX: I10 Essential (primary) hypertension (principal); F14.10 Cocaine abuse, uncomplicated; F15.10 Other stimulant abuse, uncomplicated

== ENCOUNTER 2019-06-27 16:01 | Emergency (ER) | payer MEDICAID ==
[~2019-06-27] VITALS: Ht 170.2 cm; Wt 59.1 kg
[~2019-06-27 16:01] MED LIST changes: +CATAPRES0.1 MG PO; +HCTZ; +LISINOPRIL40 MG PO; +NORVASC10 MG PO
[2019-06-27 16:30] VITALS: Ht 170.2 cm; Wt 59.1 kg
--- NOTE | 2019-06-27 17:09 | NUR ---
DR. CARRERO NOTIFIED AND SITTER ORDERED. SITTER AT BEDSIDE. NOTIFIED CHARGE NURSE AND ATTENDING IN REGARDS TO ASSESSMENT FINDINGS. RESOURCES GIVEN TO PT AND SAFETY PLAN INITIATED.
[2019-06-27 17:26] LABS: BASOPHILS 0.3 % (0-2); EOSINOPHILS 1.4 % (0-7); HEMOGLOBIN 13.1 g/dL (12-16); IMMATURE GRANULOCYTES 0.1 % (0-5); LYMPHOCYTES 24.1 % (15-50); MCH 27.6 pg (26.0-34.0); MCHC 33.6 g/dL (31.0-37.0); MCV 82.3 fL (80.0-100.0); MEAN PLATELET VOLUME 9.9 fL (7.4-10.4); MONOCYTES 6.2 % (2-11); NEUTROPHILS 67.9 % (40-80); PLATELET COUNT 282 10x3/uL (130-400); RBC 4.74 10x6/uL (4.00-5.40); RDW 15.3 % (11.5-14.5); WBC 9.4 10x3/uL (4.8-10.8)
--- NOTE | 2019-06-27 17:28 | NUR ---
DR. RÍOS COVERING FOR DR. CARRERO NOTIFIED OF PTS BEHAVIOR AND ASSESSMENT FINDINGS. SITTER ORDERED. SITTER AT BEDSIDE. NOTIFIED CHARGE NURSE AND ATTENDING. RESOURCES GIVEN TO PT. SAFETY PLAN REFUSED X 3.
[2019-06-27 17:41] LABS: ALBUMIN 3.9 g/dL (3.4-5.0); ANION GAP 14.6 mmol/L (8-16); BILIRUBIN - TOTAL 0.19 mg/dL (0.2-1.3); CALCIUM 9.7 mg/dL (8.5-10.1); CARBON DIOXIDE 22.8 mmol/L (21.0-32.0); CREATININE - SERUM 1.2 mg/dL (0.6-1.3); MAGNESIUM - SERUM 2.3 mg/dL (1.8-2.4); POTASSIUM - SERUM 4.4 mmol/L (3.5-5.1); PROTEIN - SERUM 7.8 g/dL (6.4-8.2)
[2019-06-27 18:36] LABS: APPEARANCE CLEAR (CLEAR); BILIRUBIN NEGATIVE (NEGATIVE); COLOR YELLOW (YELLOW); GLUCOSE NEGATIVE (NEGATIVE); KETONE NEGATIVE (NEGATIVE); NITRITE NEGATIVE (NEGATIVE); PROTEIN NEGATIVE (NEGATIVE); UROBILINOGEN NORMAL (NORMAL)
[2019-06-27 18:42] LABS: UDS - AMPHET POSITIVE QUAL (NEGATIVE); UDS - BARB POSITIVE QUAL (NEGATIVE); UDS - BENZO NEGATIVE QUAL (NEGATIVE); UDS - COCAINE POSITIVE QUAL (NEGATIVE); UDS - OPIATE NEGATIVE QUAL (NEGATIVE); UDS - PCP NEGATIVE QUAL (NEGATIVE); UDS - THC NEGATIVE QUAL (NEGATIVE)
--- NOTE | 2019-06-27 20:22 | NUR ---
PT WAS REASSESSED BY REQUEST OF ATTENDING PHYSICIAN, REASSESSED PT AND AND REVIEWED PT's BEHAVIOR AND ASSESSMENT FINDINGS WITH DR CARRERO, PT IS A LOW RISK PER DR CARRERO. DR CARRERO STATED TO GIVE RESOURCES TO PT AT TIME OF DISCHARGE. NO FURTHER ORDERS AT THIS TIME. RESOURCES REVIEWED WITH PT AND SHE VERBALIZED UNDERSTANDING.
[2019-06-27 21:35] VITALS: BP 93/60
== END 2019-06-27 21:20 | disposition home or self-care (01) ==
LOC: D.ER 16:01
PROVIDERS: Family Medicine
DX: F15.10 Other stimulant abuse, uncomplicated (principal); F10.10 Alcohol abuse, uncomplicated; Z63.0 Problems in relationship with spouse or partner; F17.210 Nicotine dependence, cigarettes, uncomplicated; I10 Essential (primary) hypertension

== ENCOUNTER 2020-03-02 17:19 | Emergency (ER) | payer MEDICAID ==
[~2020-03-02] VITALS: Ht 170.2 cm; Wt 70.9 kg
[2020-03-02 17:22] VITALS: Ht 170.2 cm; Wt 70.9 kg
[2020-03-02 18:42] VITALS: BP 134/88
== END 2020-03-02 18:42 | disposition home or self-care (01) ==
LOC: D.ER 17:19
DX: R51 Headache (principal); Y09 Assault by unspecified means; M79.645 Pain in left finger(s); I10 Essential (primary) hypertension; Z72.0 Tobacco use